=== PATIENT | male | born 1980 ===

== ENCOUNTER 2021-03-12 22:02 | Emergency (ER) | payer BC ==
[~2021-03-12] VITALS: Ht 170.2 cm; Wt 83.0 kg
--- NOTE | 2021-03-12 23:52 | NUR ---
Patient discharged to home in stable condition. Written and verbal after care instructions given. Patient verbalizes understanding of instructions. Stressed follow up or return to ER for worsening s/s. Patient ambulated with steady gait.
[2021-03-13 00:21] VITALS: BP 149/88
== END 2021-03-12 23:52 | disposition home or self-care (01) ==
LOC: ER 22:07
DX: M67.431 Ganglion, right wrist (principal); E11.9 Type 2 diabetes mellitus without complications; Z79.84 Long term (current) use of oral hypoglycemic drugs
CPT/HCPCS: A4663